=== PATIENT | female | born 1980 | race Caucasian/White ===

== ENCOUNTER → 2016-07-10 | Outpatient (CLI) | payer BC | LOC: MW.CHOBGYN 08:02 | PROVIDERS: ATTEND Nurse Practitioner Women's Health | DX: R31.9 Hematuria, unspecified (principal); N39.0 Urinary tract infection, site not specified; R10.9 Unspecified abdominal pain; N92.6 Irregular menstruation, unspecified | CPT/HCPCS: 36415; 81001; 84703; 85025 ==

== ENCOUNTER → 2016-07-17 | Outpatient (CLI) | payer BC ==
--- NOTE | 2016-07-18 16:33 | US ---
EXAMINATION: Transvaginal pelvic ultrasound HISTORY: Irregular menstruation COMPARISON: None TECHNIQUE: Grayscale, color Doppler, and spectral Doppler images obtained transvaginally. FINDINGS: The uterus is normal in size, contour, and echogenicity without a focal uterine mass. Endo metrial stripe thickness measures 8 mm. Both the left and right ovaries are normal in size. The left ovary is not well characterized. No adn exal masses. Normal color Doppler flow within the right ovary. No significant free pelvic fluid. IMPRESSION: 1. The left ovary is not well characterized, otherwise unremarkable pelvic ultrasound.
== END ==
LOC: MW.US 13:10
PROVIDERS: ATTEND Nurse Practitioner Women's Health
DX: N92.6 Irregular menstruation, unspecified (principal)
CPT/HCPCS: 76830; 76830-26; 81001; 87086

== ENCOUNTER → 2016-07-23 | Outpatient (CLI) | payer BC ==
[~2016-07-23] MED LIST: Iopamidol 755 Mg/ML 100 ML Bottle IVPUSH STA
[2016-07-23 17:10] LABS: CHLORIDE,CL 103 mmol/L (98-110); SODIUM,NA 137 mmol/L (136-146)
--- NOTE | 2016-07-23 19:53 | CT ---
EXAM DATE: 07/23/16 PATIENT'S AGE: 35 Patient: MONIQUE ANNA Facility: [place], [place] Site . Site : 1980 Study: CT Abdomen/Pelvis W/ and W/O Cont [id number]/[id number] 6:12:44 PM Ordering Physician: Vivi Nunez martínez Final Report: INDICATION: Right flank pain; hematuria for the last 2 weeks. Comparison: None. Technique: CT abdomen and pelvis without intravenous contrast; CT abdomen and pelvis with intravenous contrast; CT urogram; coronal and sagittal reformats. Findings: No abnormal intra pulmonary nodular densities through the lung bases. No evidence of pleural effusion. Normal size cardiac silhouette without any evidence of pericardial effusion. 1.7 x 1 cm stone identified within the right renal pelvis with moderate right-sided hydronephrosis. Enhancement of the wall of the ureter and the renal pelvis indicating obstruction and possibly infection. Left kidney is normal in structure and function with no obstructive uropathy or perinephric pathology. No focal hepatic or splenic pathology. No pancreatic pathology. Status post cholecystectomy. No adrenal pathology. No retroperitoneal lymphadenopathy. Moderate to large amount of retained stool throughout the colon. CT study of the pelvis is unremarkable. Renal collecting system and the ureters are optimally visualized and fail to reveal any abnormalities. Impression: 1. A 1.7 x 1 cm stone identified in the right renal pelvis causing hydronephrosis on the right. 2. Status post cholecystectomy. 3. Visualized renal collecting system and the ureters are normal bilaterally. 4. No other abnormalities identified. Dictated by Rajat Jackson MD @ Jul 23 2016 6:43PM (Electronic Signature) Report Signed by Proxy and Original Signed Document filed in the Medical Record. [facility] HOSPITALWinnie
== END ==
LOC: MW.CHOBGYN 16:25
PROVIDERS: ATTEND Nurse Practitioner Women's Health
DX: R10.9 Unspecified abdominal pain (principal); R31.9 Hematuria, unspecified; N13.2 Hydronephrosis with renal and ureteral calculous obstruction
CPT/HCPCS: 36415; 74178; 80048; 81001; 81025; 85025; Q9967

== ENCOUNTER 2016-07-31 09:01 | Day surgery (SDC) | payer BC ==
[~2016-07-31 09:01] MED LIST changes: -Iopamidol 755 Mg/ML 100 ML Bottle IVPUSH STA; +Lactated Ringers 1,000 ML IV SCH; +ceFAZolin 1 GM in Premix Bag 1 BAG IV ONE
[2016-07-31] MEDS ORDERED: fentaNYL 100 MCG/2 ML SDV ONE (09:45)
[2016-07-31] MEDS ORDERED: Midazolam 1 MG/ML 2 ML SDV ONE (09:45)
[2016-07-31] MEDS ORDERED: Lidocaine 2% 5 ML SDV ONE (09:45)
[2016-07-31] MEDS ORDERED: Propofol 200 MG/20 ML SDV ONE (09:45)
[2016-07-31] MEDS ORDERED: Succinylcholine/Normal Saline 200 MG/10 ML Syringe ONE (09:46)
[2016-07-31] MEDS ORDERED: Rocuronium 10 MG/ML 10 ML Syringe ONE (09:46)
[2016-07-31] MEDS ORDERED: Sodium Chloride 0.9% 20 ML ONE (09:46)
[2016-07-31] MEDS ORDERED: ceFAZolin 1 GM Vial ONE (09:46)
--- NOTE | 2016-07-31 09:52 | PCM.PREANE ---
Preanesthetic Assessment - Anesthesia/Transfusion/Family Hx Anesthesia History: Prior Anesthesia Reaction (slow anesthetic recovery time) Other Type of Anesthesia Reaction Comment: states she is hard to wake up after anesthesia Family History of Anesthesia Reaction: No Transfusion History: No Prior Transfusion(s) Intubation History: Unknown - Review of Systems General: Other (pain due to urethral stone) Pulmonary: No Symptoms Cardiovascular: No Symptoms Gastrointestinal: No symptoms Neurological: No Symptoms Other: Reports: Depression, Anxiety - Physical Assessment Height: 5 ft 5 in Weight: 140 lb ASA Class: 2 Mental Status: Alert & Oriented x3 Airway Class: Mallampati = 2 Dentition: Reports: Normal Dentition Thyro-Mental Finger Breadths: 2 Mouth Opening Finger Breadths: 3 ROM/Head Extension: Full Lungs: Clear to auscultation, Normal respiratory effort Cardiovascular: Regular Rate, Regular Rhythm, No Murmurs - Lab Values: Laboratory Last Values Urine HCG, Qual NEGATIVE (NEGATIVE) 07/31/16 09:08 - Allergies Allergies/Adverse Reactions: Allergies Allergy/AdvReac Type Severity Reaction Status Date / Time adhesive Allergy Rash Verified 02/02/16 16:22 - Blood Blood Available: No Product(s) Available: None - Anesthesia Plan Pre-Op Medication Ordered: None - Acknowledgements Anesthesia Type Planned: General Anesthesia (LMA) Pt an Appropriate Candidate for the Planned Anesthesia: Yes Alternatives and Risks of Anesthesia Discussed w Pt/Guardian: Yes Pt/Guardian Understands and Agrees with Anesthesia Plan: Yes PreAnesthesia Questionnaire HEENT History: Reports: None Cardiovascular History: Reports: None Respiratory History: Reports: None Gastrointestinal History: Reports: None Genitourinary History: Reports: Renal calculus CLINICAL REVIEWER History: Reports: Endometrial ablation Musculoskeletal History: Reports: Back pain, chronic, Fracture Other Musculoskeletal History: hx of fx foot, hx chronic pain syndrome Neurological History: Reports: Other (see below) Other Neuro History: hx of motion sickness Psychiatric History: Reports: Anxiety, Depression Endocrine/Metabolic History: Reports: None Hematologic History: Reports: None Immunologic History: Reports: None Oncologic (Cancer) History: Reports: None Dermatologic History: Reports: None - Infectious Disease History Infectious Disease History: Reports: Chicken pox - Past Surgical History Head Surgeries/Procedures: Reports: None HEENT Surgical History: Reports: Eye surgery Other HEENT Surgeries/Procedures: eye muscle at age 18 months Cardiovascular Surgical History: Reports: None Respiratory Surgical History: Reports: None GI Surgical History: Reports: Cholecystectomy Female Surgical History: Reports: Endometrial ablation, Lithotripsy/ES[facility] Other Female Surgeries/Procedures: diagnostic laparoscopy x2, [facility] in [place] in jan, 2016 Endocrine Surgical History: Reports: None Neurological Surgical History: Reports: None Musculoskeletal Surgical History: Reports: None Oncologic Surgical History: Reports: None Dermatological Surgical History: Reports: None - SUBSTANCE USE Smoking Status *Q: Never Smoker Days Per Week of Alcohol Use: 0 Recreational Drug Use History: No - HOME MEDS Home Medications: Home Meds Acetaminophen [Tylenol] 2 tab PO ASDIRECTED PRN 08/12/15 [History] DULoxetine HCl [Cymbalta] 1 cap PO DAILY 08/12/15 [History] Gabapentin [Neurontin] 600 mg PO BID 07/27/16 [History] buPROPion HCl [Wellbutrin SR] 150 mg PO DAILY 07/27/16 [History] oxyCODONE HCl/Acetaminophen [oxyCODONE-Acetaminophen 5-325] 1 tab PO ASDIRECTED 07/27/16 [History] - CURRENT (IN HOUSE) MEDS Current Meds: Current Medications Lactated Ringer's (Ringers, Lactated) 1,000 mls @ 100 mls/hr IV ASDIRECTED CANDI Discontinued Medications Cefazolin Sodium/Dextrose 1 gm (/ Premix) 50 mls @ 100 mls/hr IV ONCALL ONE Stop: 07/31/16 00:30 Preanesthetic Assessment - ANESTHESIA/TRANSFUSION/FAMILY HX Anesthesia/Transfusion History: No Prior Transfusion(s), Prior Anesthesia Other Type of Anesthesia Reaction Comment: states she is hard to wake up after anesthesia Family History of Anesthesia Reaction: No - PHYSICAL ASSESSMENT Height: 5 ft 5 in Weight: 140 lb - LAB Values: Laboratory Last Values Urine HCG, Qual NEGATIVE (NEGATIVE) 07/31/16 09:08 - ALLERGIES Allergies/Adverse Reactions: Allergies Allergy/AdvReac Type Severity Reaction Status Date / Time adhesive Allergy Rash Verified 02/02/16 16:22
[2016-07-31] MEDS ORDERED: Iopamidol 408 MG/ML 50 ML SDV ONE (09:57)
[2016-07-31] MEDS ORDERED: Ondansetron 4 MG/2 ML SDV ONE (11:05)
[2016-07-31] MEDS ORDERED: Ketorolac 30 MG/ML SDV ONE (11:05)
--- NOTE | 2016-07-31 11:51 | PCM.POSTAN ---
POST ANESTHESIA ASSESSMENT - MENTAL STATUS Mental Status: alert, oriented - VITAL SIGNS SaO2: 95 - RESPIRATORY Respiratory Status: respiratory rate WNL, airway patent, O2 saturation stable ( keep O2 via cannula to phase II) - CARDIOVASCULAR CV Status: pulse rate WNL, blood pressure stable - GASTROINTESTINAL GI Status: no symptoms - PAIN Pain Score: 5 (to get analgesic) - POST OP HYDRATION Hydration Status: adequate & stable
[2016-07-31] MEDS: fentaNYL 100 MCG/2 ML SDV IVPUSH PRN ×2 (11:53→11:59)
[2016-07-31 13:33] VITALS: BP 116/74
--- NOTE | 2016-07-31 14:04 | PCM48HPAN ---
Post Anesthesia Note - EVALUATION WITHIN 48HRS OF ANESTHETIC Vital Signs in Normal Range: Yes Patient Participated in Evaluation: Yes Respiratory Function Stable: Yes Airway Patent: Yes Cardiovascular Function Stable: Yes Hydration Status Stable: Yes Pain Control Satisfactory: Yes Nausea and Vomiting Control Satisfactory: Yes Mental Status Recovered: Yes
--- NOTE | 2016-07-31 14:34 | OR ---
SURGEON: Moraima Spaulding M.D. DATE OF PROCEDURE: 07/31/2016 PREOPERATIVE DIAGNOSIS: Residual right renal pelvis stone. POSTOPERATIVE DIAGNOSIS: Residual right renal pelvis stone. OPERATION: Renoscopy, laser lithotripsy, and double-J stent placement. DESCRIPTION OF PROCEDURE: The patient is given general anesthesia, placed in dorsal lithotomy position, prepped and draped in sterile drapes. The lower ureter was dilated using the UroMax balloon dilator to approximately 15-Japanese. Ureteroscopy was done all the way up into the renal pelvis. The stone was visualized. The rigid ureteroscope was initially used. The stone could only be visualized in part. The part that was visible was treated with the laser. Subsequently, I had to use a flexible ureteroscope to get up to the stone and break it up into a multitude of small pieces. With that done, the procedure was terminated. A 7- Japanese 26 cm double-J stent was placed over a guidewire. The guidewire was removed. The bladder was emptied. The string at the end of the stent was taped to the inside of the right thigh. The patient tolerated the procedure well and was moved to recovery room in good condition. CESIA / KATHY /[id number]
--- NOTE | 2016-07-31 15:15 | CR ---
EXAMINATION: Cystoscopy HISTORY: Stone lithotripsy COMPARISON: 07/23/2016 TECHNIQUE: 3 views FINDINGS/IMPRESSION: Operative control films demonstrate selection of the right ureter with removal of the right-sided renal collecting system calcification. Subsequent stent was placed.
== END 2016-07-31 14:04 | disposition home or self-care (01) ==
LOC: MW.SDS 09:01
PROVIDERS: ATTEND Urology
PROC: 0TF38ZZ Fragmentation in Right Kidney Pelvis, Via Natural or Artificial Opening Endoscopic (ICD-10-PCS; principal; 2016-07-31)
PROC: 0T768DZ Dilation of Right Ureter with Intraluminal Device, Via Natural or Artificial Opening Endoscopic (ICD-10-PCS; 2016-07-31)
DX: N13.2 Hydronephrosis with renal and ureteral calculous obstruction (principal); G89.4 Chronic pain syndrome; F32.9 Major depressive disorder, single episode, unspecified; Z79.899 Other long term (current) drug therapy
CPT/HCPCS: 52356; 76000; 81025; C1769; C1874; J0690; J1885; J2250; J2405; J3010; Q9966; 00910; J2704

== ENCOUNTER → 2016-08-20 | Outpatient (CLI) | payer BC | LOC: MW.CHFP 15:56 | PROVIDERS: ATTEND Physician Assistant | DX: J02.9 Acute pharyngitis, unspecified (principal) | CPT/HCPCS: 87081; 87880 ==